=== PATIENT | male | born 2000 | race Caucasian/White ===

== ENCOUNTER → 2024-09-16 16:03 | Outpatient (BNVA) | payer BC, SELFPAY | PROVIDERS: Family Provider Family Medicine; PCP Family Medicine; Visit Provider Nurse Practitioner | DX: R50.9 Fever, unspecified (principal) | CPT/HCPCS: 87400 ==

== ENCOUNTER → 2024-12-02 10:43 | Outpatient (BNVA) | payer BC, SELFPAY | PROVIDERS: Family Provider Family Medicine; PCP Family Medicine; Visit Provider Emergency Medicine | DX: M25.531 Pain in right wrist (principal) | CPT/HCPCS: 73110 ==